=== PATIENT | male | born 1950 | race Caucasian/White ===

== ENCOUNTER → 2017-12-24 | Outpatient (CLI) | payer BC | LOC: COL.VAS 10:25 | DX: I08.3 Combined rheumatic disorders of mitral, aortic and tricuspid valves (principal); Z95.4 Presence of other heart-valve replacement ==

== ENCOUNTER 2019-05-19 18:46 | Emergency (ER) | payer BC ==
[~2019-05-19] VITALS: Ht 172.7 cm; Wt 70.5 kg
[2019-05-19 19:15] VITALS: BP 140/64; TEMP 98
[2019-05-19] MEDS ORDERED: NORCO 325 MG-51 TAB PO (20:48)
[2019-05-19 21:11] VITALS: PULSE 73
== END 2019-05-19 21:11 | disposition home or self-care (01) ==
LOC: COL.ER 18:46
DX: M54.32 Sciatica, left side (principal); Z95.2 Presence of prosthetic heart valve

== ENCOUNTER 2019-06-11 08:58 | Emergency (ER) | payer BC ==
[~2019-06-11] VITALS: Ht 172.7 cm; Wt 70.5 kg
[~2019-06-11 08:58] MED LIST: NORCO 325 MG-51 TAB PO
[2019-06-11 09:03] VITALS: BP 157/71; TEMP 97.8
[2019-06-11] MEDS ORDERED: FLEXERIL 1010 MG/TAB PO ×3 (09:46→11:13)
[2019-06-11] MEDS ORDERED: NEURONTIN300 MG/CAP PO ×2 (09:46)
[2019-06-11] MEDS ORDERED: LIPITOR20 MG PO (10:23)
[2019-06-11] MEDS ORDERED: PRINIVIL5 MG PO (10:23)
[2019-06-11] MEDS ORDERED: PREDNISONE20 MG PO ×3 (10:41→11:13)
[2019-06-11] MEDS ORDERED: NEURONTIN600 MG/TAB PO (11:13)
[2019-06-11 11:30] VITALS: PULSE 70
== END 2019-06-11 11:30 | disposition home or self-care (01) ==
LOC: COL.ER 08:58
DX: M54.16 Radiculopathy, lumbar region (principal)
CPT/HCPCS: J1885; J2270; J7512

== ENCOUNTER → 2021-06-20 | Outpatient (CLI) | payer MEDICARE ==
[~2021-06-20] MED LIST changes: +FLEXERIL 1010 MG/TAB PO; +LIPITOR20 MG PO; +NEURONTIN300 MG/CAP PO; +NEURONTIN600 MG/TAB PO; +PREDNISONE20 MG PO; +PRINIVIL5 MG PO
== END ==
LOC: ZCOL.LAB 16:04
DX: Z20.822 Contact with and (suspected) exposure to COVID-19 (principal)